=== PATIENT | female | born 1985 | race Caucasian/White ===

== ENCOUNTER 2022-05-04 12:25 | Emergency (ER) | payer OTHER ==
--- NOTE | 2022-05-04 13:01 | ERPHSYRPT ---
- History of Present Illness Time Seen by Provider: 05/04/22 13:01 Source: patient Exam Limitations: no limitations Physician History: This is a 36-year-old white female patient who has had an intermittent dry cough, shortness of breath and chest pain for 2 to 3 days. Patient was seen at [facility] and placed on steroids and diagnosed with pleurisy. The chest pain is intermittent and its central and to the right side. Symptoms are not any better. She has no abdominal pain. She has no fever. She has no nausea vomiting or diarrhea symptoms. Timing/Duration: day(s) Cough Quality/Degree: mild, dry cough Possible Cause: no prior episodes Modifying Factors: Improves With: coughing Associated Symptoms: chest pain/soreness, cough, shortness of breath Travel Risk - International Travel Have you traveled outside of the country in past 3 weeks: No - Coronavirus Screening Are you exhibiting any of the following symptoms?: Yes Symptoms: Cough: New Onset, Shortness of Breath Close contact with a COVID-19 positive Pt in past 14-21 Days: No - Review of Systems Constitutional: No Symptoms Eyes: No Symptoms, Foreign Body Sensation Respiratory: Cough, Dyspnea Cardiac: Chest Pain (With cough) Abdominal/Gastrointestinal: No Symptoms Genitourinary Symptoms: No Symptoms Musculoskeletal: No Symptoms Skin: No Symptoms Neurological: No Symptoms Psychological: No Symptoms Endocrine: No Symptoms Hematologic/Lymphatic: No Symptoms Immunological/Allergic: No Symptoms All Other Systems: Reviewed and Negative - Past Medical History Pertinent Past Medical History: Yes - Past Surgical History Past Surgical History: Yes - Nursing Vital Signs Nursing Vital Signs: Initial Vital Signs Temperature 96.2 F 05/04/22 13:12 Pulse Rate 79 05/04/22 13:12 Respiratory Rate 18 05/04/22 13:12 Blood Pressure 128/76 05/04/22 13:12 O2 Sat by Pulse Oximetry 99 05/04/22 13:12 Pain Scale Pain Intensity 5 - Physical Exam General Appearance: no apparent distress, alert, anxiety Eye Exam: PERRL/EOMI, eyes nml inspection Ears, Nose, Throat Exam: normal ENT inspection, moist mucous membranes Neck Exam: normal inspection, non-tender, supple, full range of motion Respiratory Exam: normal breath sounds, chest tenderness (With coughing), lungs clear, airway intact, No respiratory distress Cardiovascular Exam: regular rate/rhythm, normal heart sounds, normal peripheral pulses Gastrointestinal/Abdomen Exam: soft, normal bowel sounds, No tenderness Pelvic Exam: not done Rectal Exam: not done Back Exam: normal inspection, normal range of motion, No CVA tenderness, No vertebral tenderness Extremity Exam: normal inspection, normal range of motion, pelvis stable Neurologic Exam: alert, oriented x 3, cooperative, pearl peller II-XII nml as tested, normal mood/affect, nml cerebellar function, nml station & gait, sensation nml Skin Exam: normal color, warm, dry Lymphatic Exam: No adenopathy SpO2 Interpretation: normal O2 Delivery: Room Air - Course Nursing assessment & vital signs reviewed: Yes EKG Interpreted by Me: RATE (68), Sinus Rhythm, NORMAL AXIS, NORMAL INTERVALS, NORMAL QRS, NORMAL ST-T, Other Ordered Tests: Active Orders 24 hr Category Date Time Status EKG-ER Only STAT Care 05/04/22 13:40 Active Pulse Oximetry (ED) STAT Care 05/04/22 13:40 Active CHEST 1 VIEW (PORTABLE) Stat Exams 05/04/22 13:40 Completed CBC W DIFF Stat Lab 05/04/22 13:57 Completed CMP Stat Lab 05/04/22 13:57 Completed D-DIMER QUANTITATIVE Stat Lab 05/04/22 13:57 Completed TROPONIN Q4H Lab 05/04/22 13:57 Completed TROPONIN Q4H Lab 05/04/22 17:45 Ordered TROPONIN Q4H Lab 05/04/22 21:45 Ordered Medication Summary Discontinued Medications Generic Name Dose Route Start Last Admin Trade Name Freq PRN Reason Stop Dose Admin Aspirin 324 mg 05/04/22 13:40 05/04/22 14:29 Aspirin 81 Mg Tab.Chew PO 05/04/22 13:41 324 mg STAT ONE Administration Lab/Rad Data: Laboratory Result Diagrams 05/04/22 13:57 05/04/22 13:57 Laboratory Results 05/04/22 05/04/22 05/04/22 Range/Units 13:57 13:57 13:57 WBC (4.0-10.5) x10^3/uL RBC (4.1-5.4) x10^6/uL Hgb (12.0-16.0) g/dL Hct (35-47) % MCV (78-100) fL MCH (26-32) pg MCHC (32-36) g/dL RDW (11.5-14.0) % Plt Count (150-450) x10^3/uL MPV (7.5-11.0) fL Gran % (36.0-66.0) % Immature Gran % (Auto) (0.00-0.4) % Nucleat RBC Rel Count (0.00-0.1) % Eos # (Auto) (0-0.5) x10^3/uL Immature Gran # (Auto) (0.00-0.03) x10^3u/L Absolute Lymphs (auto) (1.0-4.6) x10^3/uL Absolute Monos (auto) (0.0-1.3) x10^3/uL Absolute Nucleated RBC (0.00-0.01) x10^3u/L Lymphocytes % (24.0-44.0) % Monocytes % (0.0-12.0) % Eosinophils % (0.00-5.0) % Basophils % (0.0-0.4) % Absolute Granulocytes (1.4-6.9) x10^3/uL Basophils # (0-0.4) x10^3/uL D-Dimer 0.34 (0.0-0.50) mg/L Sodium (137-145) mmol/L Potassium (3.5-5.1) mmol/L Chloride (98-107) mmol/L Carbon Dioxide (22-30) mmol/L Anion Gap (5-15) MEQ/L BUN (7-17) mg/dL Creatinine (0.52-1.04) mg/dL Estimated GFR ML/MIN Glucose (74-106) mg/dL Calcium (8.4-10.2) mg/dL Total Bilirubin (0.2-1.3) mg/dL AST (14-36) U/L ALT (0-35) U/L Alkaline Phosphatase (38-126) U/L Troponin I < 0.012 (0.000-0.034) ng/mL Serum Total Protein (6.3-8.2) g/dL Albumin (3.5-5.0) g/dL Influenza Type A Ag NEGATIVE (NEGATIVE) Influenza Type B Ag NEGATIVE (NEGATIVE) RSV (PCR) NEGATIVE (Negative) SARS-CoV-2 (PCR) NEGATIVE (NEGATIVE) 05/04/22 05/04/22 Range/Units 13:57 13:57 WBC 11.5 H (4.0-10.5) x10^3/uL RBC 4.44 (4.1-5.4) x10^6/uL Hgb 12.9 (12.0-16.0) g/dL Hct 40.5 (35-47) % MCV 91.2 (78-100) fL MCH 29.1 (26-32) pg MCHC 31.9 L (32-36) g/dL RDW 14.0 (11.5-14.0) % Plt Count 241 (150-450) x10^3/uL MPV 11.6 H (7.5-11.0) fL Gran % 84.2 H (36.0-66.0) % Immature Gran % (Auto) 0.4 (0.00-0.4) % Nucleat RBC Rel Count 0.0 (0.00-0.1) % Eos # (Auto) 0.01 (0-0.5) x10^3/uL Immature Gran # (Auto) 0.05 H (0.00-0.03) x10^3u/L Absolute Lymphs (auto) 1.20 (1.0-4.6) x10^3/uL Absolute Monos (auto) 0.54 (0.0-1.3) x10^3/uL Absolute Nucleated RBC 0.00 (0.00-0.01) x10^3u/L Lymphocytes % 10.4 L (24.0-44.0) % Monocytes % 4.7 (0.0-12.0) % Eosinophils % 0.1 (0.00-5.0) % Basophils % 0.2 (0.0-0.4) % Absolute Granulocytes 9.67 H (1.4-6.9) x10^3/uL Basophils # 0.02 (0-0.4) x10^3/uL D-Dimer (0.0-0.50) mg/L Sodium 142 (137-145) mmol/L Potassium 4.0 (3.5-5.1) mmol/L Chloride 105 (98-107) mmol/L Carbon Dioxide 29 (22-30) mmol/L Anion Gap 12.1 (5-15) MEQ/L BUN 11 (7-17) mg/dL Creatinine 0.59 (0.52-1.04) mg/dL Estimated GFR > 60.0 ML/MIN Glucose 101 (74-106) mg/dL Calcium 9.6 (8.4-10.2) mg/dL Total Bilirubin 0.40 (0.2-1.3) mg/dL AST 27 (14-36) U/L ALT 23 (0-35) U/L Alkaline Phosphatase 53 (38-126) U/L Troponin I (0.000-0.034) ng/mL Serum Total Protein 8.4 H (6.3-8.2) g/dL Albumin 4.9 (3.5-5.0) g/dL Influenza Type A Ag (NEGATIVE) Influenza Type B Ag (NEGATIVE) RSV (PCR) (Negative) SARS-CoV-2 (PCR) (NEGATIVE) - Progress Progress: re-examined Air Movement: good Progress Note: 05/04/22 17:18 Chest x-ray was read by the radiologist and the impression was reviewed by me. There is no acute cardiopulmonary process. This patient's medical issue is of moderate complexity. The past medical history was reviewed as was the report from the [facility] visit recently. Patient was diagnosed with pleurisy and given a prescription for steroids. However, her symptoms are not improved. The work-up was performed based on the patient's past medical history, history of present illness and findings on physical examination. The work-up include placement of IV, chest x- ray, twelve-lead EKG, troponin, D-dimer, CBC and CMP. The results were reviewed by me. They were discussed with the patient. Discharge plan is to have the patient receive cefdinir oral antibiotics, continuation of her outpatient steroi ds, and I will add hydrocodone elixir for cough. She is to follow-up with her primary care provider for further evaluation management. Blood Culture(s) Obtained: No Antibiotics given: No Counseled pt/family regarding: lab results, diagnosis, need for follow-up, rad results Medical Desision Making - Discussion of managment Reviewed:: Test results Agreed on:: Treatment plan, need for follow-up - Diagnostic Testing Diagnostic test were ordered, analyzed, and reviewed by me: Yes Radiological Interpretation: Interpreted by me, Teleradiologist Report - Risk of complications The pt has a mod risk of morbidity or mortality based on: Need for prescription drug management - Departure Departure Disposition: Home Clinical Impression: Upper respiratory infection, Leukocytosis Condition: Stable Critical Care Time: No Referrals: MAURICE BAEZ [employer] [Primary Care Provider] - Follow up/PCP as directed Additional Instructions: Avoid exposure to any type of smoke. Continue your steroids as prescribed. Take your cough medicine and antibiotics as prescribed. Follow-up with your primary care provider for further evaluation management. Prescriptions: Hydrocodone/Acetaminophen [Hydrocodone-Acetamn 7.5-325/15] 10 ml PO Q8H PRN PRN #120 ml MDD 30 ml PRN Reason: Cough Cefdinir 300 mg PO BID #14 cap
[2022-05-04] MEDS ORDERED: BABY ASPIRIN 81 MG CHEW PO ONE (13:40)
--- NOTE | 2022-05-04 13:58 | XRAY ---
Indication: Cough and chest pain. Comparison: None Portable chest demonstrates minimal left base subsegmental atelectasis/scarring and a few incidental tiny calcified granuloma. Remaining heart and lungs normal. Bony thorax intact.
[2022-05-04 14:01] LABS: Absolute Neutrophil Ct (ANC) 9.67 x10^3/uL (1.4-6.9); BASOPHIL % 0.2 % (0.0-0.4); Basophil (Absolute #) 0.02 x10^3/uL (0-0.4); Eosinophil % 0.1 % (0.00-5.0); Eosinophil (Absolute #) 0.01 x10^3/uL (0-0.5); Hematocrit 40.5 % (35-47); Hemoglobin 12.9 g/dL (12.0-16.0); IMMATURE GRAN # 0.05 x10^3u/L (0.00-0.03); IMMATURE GRAN % 0.4 % (0.00-0.4); Lymphocytes % 10.4 % (24.0-44.0); Mean Cell Volume 91.2 fL (78-100); Mean Corpuscular Hemoglobin 29.1 pg (26-32); Mean Corpuscular Hgb Concent. 31.9 g/dL (32-36); Mean Platelet Volume 11.6 fL (7.5-11.0); Monocyte (Absolute #) 0.54 x10^3/uL (0.0-1.3); Monocytes % 4.7 % (0.0-12.0); Neutrophil % 84.2 % (36.0-66.0); Platelet Count 241 x10^3/uL (150-450); Red Blood Count 4.44 x10^6/uL (4.1-5.4); White Blood Count 11.5 x10^3/uL (4.0-10.5)
[2022-05-04 14:18] LABS: ALBUMIN 4.9 g/dL (3.5-5.0); ALKALINE PHOSPHATASE 53 U/L (38-126); ANION GAP 12.1 MEQ/L (5-15); BLOOD UREA NITROGEN 11 mg/dL (7-17); CHLORIDE 105 mmol/L (98-107); Calcium 9.6 mg/dL (8.4-10.2); Carbon Dioxide 29 mmol/L (22-30); Creatinine 1 0.59 mg/dL (0.52-1.04); EST GLOMERULAR FILTRATION RATE > 60.0 ML/MIN; Glucose 101 mg/dL (74-106); SGOT/AST 27 U/L (14-36); SGPT/ALT 23 U/L (0-35); SODIUM 142 mmol/L (137-145); Total Protein 8.4 g/dL (6.3-8.2)
[2022-05-04 14:47] LABS: INFLUENZA A NEGATIVE (NEGATIVE); INFLUENZA B NEGATIVE (NEGATIVE); RESPIRATORY SYNCTIAL VIRUS NEGATIVE (Negative); SARS-CoV-2 Xpert Express NEGATIVE (NEGATIVE)
[2022-05-04 16:02] VITALS: O2SAT 100
[2022-05-04 18:06] VITALS: BP 129/77; PULSE 64
== END 2022-05-04 18:05 | disposition home or self-care (01) ==
LOC: ED 12:25
DX: J06.9 Acute upper respiratory infection, unspecified (principal); D72.829 Elevated white blood cell count, unspecified; R07.9 Chest pain, unspecified; R05.1 Acute cough; R06.02 Shortness of breath; Z79.891 Long term (current) use of opiate analgesic
CPT/HCPCS: 0241U; 36415; 71045; 80053; 84484; 85025; 85379; 93005; 94760; 99283; A9270-GY

== ENCOUNTER 2024-07-04 11:02 | Observation (INO) | payer MEDICAID, OTHER ==
[2024-07-04] MEDS ORDERED: Zofran 4 MG/2 ML VIAL ONE (11:57)
[2024-07-04] MEDS ORDERED: Sodium Chloride 0.9% 1000 ML 1,000 ML ONE (11:57)
[2024-07-04] MEDS ORDERED: MORPHINE SULFATE 2 MG INJ ONE (11:57)
--- NOTE | 2024-07-04 11:57 | ERPHSYRPT ---
- History of Present Illness Time Seen by Provider: 07/04/24 11:52 Source: patient Exam Limitations: no limitations Patient Subjective Stated Complaint: pt states that she was at [facility] on wednesday and was diagnosed with gastritis. pt states that she has not been able to eat or drink since Triage Nursing Assessment: pt ambulated into the er; pt is axo x4; c/o nausea; pt denies vomiting due to past surgery that she is not able to vomit; pt states 7/10 pain to abd; abd is soft, round, non tender with palpitation; active bowel sounds in all quads; pt denies diarrhea; pt states last bm was 06/29/24; mucus membranes are pink and moist; skin PDW; no respiratory distress present; vitals wnl Physician History: 39-year-old history of Herman fundoplication 2 years ago presents to our ED for evaluation of nausea and abdominal discomfort. Patient reports that she was at [facility] 4 days ago for the same. Patient had a complete workup including CT abdomen pelvis with contrast. Patient was diagnosed with gastritis. Patient was sent home with nausea medication. Patient states and spite of taking the medication as prescribed she has not been able to tolerate oral intake. Patient unable to eat or drink. Patient states she is unable to vomit secondary to the fundoplication. Patient rates her pain 7 out of 10. No trauma no fever no rash. No chest pain or shortness of breath. No diaphoresis. Symptoms are moderate in intensity. No specific worsening or improving factors. Patient voices no other complaints or concerns at this time. Portions of this note were created with voice recognition technology. There may be grammatical, spelling, punctuation or sound alike errors Timing/Duration: day(s) (4 days) Severity: moderate Modifying Factors: Improves With: nothing Associated Symptoms: denies symptoms Allergies/Adverse Reactions: No Known Drug Allergies Allergy (Unverified 07/04/24 11:08) Home Medications: Buspirone HCl 5 mg [Buspar 5 mg] 5 mg PO BID 07/04/24 [History] Buspirone HCl 5 mg [Buspar 5 mg] 10 mg PO TID 07/04/24 [History] Celecoxib 100 mg [celeBREX 100 MG] 100 mg PO BID 07/04/24 [History] Gabapentin 800 mg PO TID PRN 07/04/24 [History] Mirtazapine 30 mg [Remeron 30 mg] 30 mg PO HS 07/04/24 [History] Naltrexone HCl 50 mg PO DAILY 07/04/24 [History] Promethazine HCl 25 mg [Phenergan 25 mg] 25 mg PO QIDPRN PRN 07/04/24 [History] Sertraline HCl 100 mg PO DAILY 07/04/24 [History] risperiDONE [Risperdal] 2 mg PO BID 07/04/24 [History] risperiDONE [Risperidone] 1 mg PO HS 07/04/24 [History] risperiDONE [Risperidone] 2 mg PO DAILY 07/04/24 [History] Hx Tetanus, Diphtheria Vaccination/Date Given: No Hx Influenza Vaccination/Date Given: No Hx Pneumococcal Vaccination/Date Given: No Travel Risk - International Travel Have you traveled outside of the country in past 3 weeks: No - Emerging Infectious Disease Are you exhibiting symptoms associated with any current EIDs: Yes Symptoms: Abdominal Pain, Vomitting - Review of Systems Constitutional: No Symptoms, No Fever, No Chills Eyes: No Symptoms Ears, Nose, & Throat: No Symptoms Respiratory: No Symptoms, No Cough, No Dyspnea Cardiac: No Symptoms, No Chest Pain, No Edema, No Syncope Abdominal/Gastrointestinal: No Symptoms, No Abdominal Pain, No Nausea, No Vomiting, No Diarrhea Genitourinary Symptoms: No Symptoms, No Dysuria Musculoskeletal: No Symptoms, No Back Pain, No Neck Pain Skin: No Symptoms, No Rash Neurological: No Symptoms, No Dizziness, No Focal Weakness, No Sensory Changes Psychological: No Symptoms Endocrine: No Symptoms Hematologic/Lymphatic: No Symptoms Immunological/Allergic: No Symptoms All Other Systems: Reviewed and Negative - Past Medical History Pertinent Past Medical History: Yes Psycho-Social History: Bipolar, Depression - Past Surgical History Past Surgical History: Yes Musculoskeletal: Orthopedic Surgery Female Surgical History: Tubal Ligation Other Surgical History: right femur, esophageal surgery - Female History Hx Now: No - Social History Smoking Status: Current every day smoker Exposure to second hand smoke: Yes Drug Use: none - Social Determinants of Health Will the patient participate in the screening: Yes Do you worry about a steady place to live?: No Do you have any problems with any of the following?: No known problems In the past 12 months,have you had to go without utilities?: No Transportation Issues: No Has anyone in your support network made you feel unsafe?: No Have you or anyone in your house had to go w/o enough food: No - Nursing Vital Signs Nursing Vital Signs: Initial Vital Signs Pulse Rate 65 07/04/24 11:09 Blood Pressure 118/75 07/04/24 11:09 O2 Sat by Pulse Oximetry 98 07/04/24 11:09 Pain Scale Pain Intensity 5 - Physical Exam General Appearance: no apparent distress, alert Eye Exam: PERRL/EOMI, eyes nml inspection Ears, Nose, Throat Exam: normal ENT inspection, pharynx normal, moist mucous membranes Neck Exam: normal inspection, full range of motion Respiratory Exam: normal breath sounds, lungs clear, No respiratory distress Cardiovascular Exam: regular rate/rhythm, normal heart sounds, normal peripheral pulses Gastrointestinal/Abdomen Exam: soft, normal bowel sounds, No tenderness, No mass Back Exam: normal inspection, normal range of motion, No CVA tenderness, No vertebral tenderness Extremity Exam: normal inspection, normal range of motion, pelvis stable Neurologic Exam: alert, oriented x 3, cooperative, normal mood/affect, sensation nml, No motor deficits Skin Exam: normal color, warm, dry, No rash Lymphatic Exam: No adenopathy SpO2 Interpretation: normal SpO2: 99 O2 Delivery: Room Air - Course Nursing assessment & vital signs reviewed: Yes Ordered Tests: Active Orders 24 hr Category Date Time Status IV Insertion STAT Care 07/04/24 11:52 Active CBC W DIFF Stat Lab 07/04/24 11:59 Completed CMP Stat Lab 07/04/24 11:59 Completed CULTURE,URINE Stat Lab 07/04/24 11:52 Received LIPASE Stat Lab 07/04/24 11:59 Completed Lactic Acid Stat Lab 07/04/24 11:52 Completed TROPONIN Q4H Lab 07/04/24 11:59 Completed TROPONIN Q4H Lab 07/04/24 16:00 Ordered TROPONIN Q4H Lab 07/04/24 20:00 Ordered UA W/RFX UR CULTURE Stat Lab 07/04/24 11:52 Completed Transfer Order Routine Transfer 07/04/24 Ordered Medication Summary Discontinued Medications Generic Name Dose Route Start Last Admin Trade Name Freq PRN Reason Stop Dose Admin Sodium Chloride 1,000 mls @ 999 mls/hr 07/04/24 11:52 07/04/24 13:01 Sodium Chloride 0.9% 1000 Ml IV 07/04/24 12:52 Infused .Q1H1M STA Infusion Sodium Chloride Confirm 07/04/24 11:57 Sodium Chloride 0.9% 1000 Ml Administered 07/04/24 11:58 Dose 1,000 mls @ ud .ROUTE .STK-MED ONE Ceftriaxone Sodium 1 gm in 100 mls @ 200 mls/hr 07/04/24 12:31 07/04/24 12:49 Rocephin 1 Gm / 100 Ml Nacl IV 07/04/24 13:00 200 mls/hr STAT ONE 200 mls/hr Administration Ceftriaxone Sodium Confirm 07/04/24 12:48 Rocephin 1 Gm / 100 Ml Nacl Administered 07/04/24 12:49 Dose 1 gm in 100 mls @ ud IV .STK-MED ONE Morphine Sulfate 2 mg 07/04/24 11:52 07/04/24 11:59 Morphine Sulfate 2 Mg/Ml Inj IV 07/04/24 11:53 2 mg STAT ONE Administration Morphine Sulfate Confirm 07/04/24 11:57 Morphine Sulfate 2 Mg/Ml Inj Administered 07/04/24 11:58 Dose 2 mg .ROUTE .STK-MED ONE Morphine Sulfate 4 mg 07/04/24 12:30 07/04/24 12:49 Morphine Sulfate 4 Mg/Ml Injection IV 07/04/24 12:31 4 mg STAT ONE Administration Morphine Sulfate Confirm 07/04/24 12:48 Morphine Sulfate 4 Mg/Ml Injection Administered 07/04/24 12:49 Dose 4 mg .ROUTE .STK-MED ONE Ondansetron HCl 4 mg 07/04/24 11:52 07/04/24 11:59 Ondansetron Hcl 4 Mg/2 Ml Vial IV 07/04/24 11:53 4 mg STAT ONE Administration Ondansetron HCl Confirm 07/04/24 11:57 Ondansetron Hcl 4 Mg/2 Ml Vial Administered 07/04/24 11:58 Dose 4 mg .ROUTE .STK-MED ONE Pantoprazole Sodium 40 mg 07/04/24 12:19 07/04/24 12:25 Pantoprazole 40 Mg Vial IV 07/04/24 12:20 40 mg STAT ONE Administration Pantoprazole Sodium Confirm 07/04/24 12:24 Pantoprazole 40 Mg Vial Administered 07/04/24 12:25 Dose 40 mg IV .K-MED ONE Lab/Rad Data: Laboratory Result Diagrams 07/04/24 11:59 07/04/24 11:59 Laboratory Results 07/04/24 07/04/24 07/04/24 Range/Units 11:59 11:59 11:59 WBC 9.7 (3.98-10.04) x10^3/uL RBC 4.87 (3.93-5.22) x10^6/uL Hgb 15.2 (11.2-15.7) g/dL Hct 43.7 (34.1-44.9) % MCV 89.7 (79.4-94.8) fL MCH 31.2 (25.6-32.2) pg MCHC 34.8 (32.2-35.5) g/dL RDW 13.9 (11.7-14.4) % Plt Count 224 (182-369) x10^3/uL MPV 13.0 H (9.4-12.3) fL Gran % 68.4 (34.0-71.1) % Immature Gran % (Auto) 0.3 (0.001-0.429) % Nucleat RBC Rel Count 0.0 (0.00-0.2) % Eos # (Auto) 0.07 (0.04-0.36) x10^3/uL Immature Gran # (Auto) 0.03 (0.001-0.031) x10^3u/L Absolute Lymphs (auto) 2.35 (1.18-3.74) x10^3/uL Absolute Monos (auto) 0.58 (0.24-0.86) x10^3/uL Absolute Nucleated RBC 0.00 (0.00-0.012) x10^3u/L Lymphocytes % 24.2 (19.3-51.7) % Monocytes % 6.0 (4.7-12.5) % Eosinophils % 0.7 (0.7-5.8) % Basophils % 0.4 (0.1-1.2) % Absolute Granulocytes 6.64 H (1.56-6.13) x10^3/uL Basophils # 0.04 (0.01-0.08) x10^3/uL Sodium 136 (135-145) mmol/L Potassium 3.6 (3.5-5.1) mmol/L Chloride 97 L (98-107) mmol/L Carbon Dioxide 22 (22-30) mmol/L Anion Gap 21.1 H (5-15) MEQ/L BUN 8 (7-17) mg/dL Creatinine 0.62 (0.52-1.04) mg/dL Estimated GFR 116.8 ML/MIN Glucose 86 (74-106) mg/dL Lactic Acid (0.4-2.0) Calcium 9.5 (8.4-10.2) mg/dL Total Bilirubin 0.70 (0.2-1.3) mg/dL AST 37 H (14-36) U/L ALT 21 (0-35) U/L Alkaline Phosphatase 63 (38-126) U/L Troponin I < 0.012 (0.000-0.033) ng/mL Serum Total Protein 7.5 (6.3-8.2) g/dL Albumin 4.7 (3.5-5.0) g/dL Lipase 111 (23-300) U/L Urine Color (Yellow) Urine Appearance (Clear) Urine pH (4.6-8.0) Ur Specific [place] (1.005-1.030) Urine Protein (Negative) Urine Glucose (UA) (Negative) mg/dL Urine Ketones (Negative) Urine Blood (Negative) Urine Nitrite (Negative) Urine Bilirubin (Negative) Urine Urobilinogen (0.2) mg/dL Ur Leukocyte Esterase (Negative) U Hyaline Cast (Auto) (0-2) /LPF Urine Microscopic RBC (0-5) /HPF Urine Microscopic WBC (0-5) /HPF Ur Epithelial Cells (None Seen) /HPF Urine Bacteria (None Seen) /HPF Urine Culture Reflexed (NO) 07/04/24 07/04/24 Range/Units 11:52 11:52 WBC (3.98-10.04) x10^3/uL RBC (3.93-5.22) x10^6/uL Hgb (11.2-15.7) g/dL Hct (34.1-44.9) % MCV (79.4-94.8) fL MCH (25.6-32.2) pg MCHC (32.2-35.5) g/dL RDW (11.7-14.4) % Plt Count (182-369) x10^3/uL MPV (9.4-12.3) fL Gran % (34.0-71.1) % Immature Gran % (Auto) (0.001-0.429) % Nucleat RBC Rel Count (0.00-0.2) % Eos # (Auto) (0.04-0.36) x10^3/uL Immature Gran # (Auto) (0.001-0.031) x10^3u/L Absolute Lymphs (auto) (1.18-3.74) x10^3/uL Absolute Monos (auto) (0.24-0.86) x10^3/uL Absolute Nucleated RBC (0.00-0.012) x10^3u/L Lymphocytes % (19.3-51.7) % Monocytes % (4.7-12.5) % Eosinophils % (0.7-5.8) % Basophils % (0.1-1.2) % Absolute Granulocytes (1.56-6.13) x10^3/uL Basophils # (0.01-0.08) x10^3/uL Sodium (135-145) mmol/L Potassium (3.5-5.1) mmol/L Chloride (98-107) mmol/L Carbon Dioxide (22-30) mmol/L Anion Gap (5-15) MEQ/L BUN (7-17) mg/dL Creatinine (0.52-1.04) mg/dL Estimated GFR ML/MIN Glucose (74-106) mg/dL Lactic Acid 1.7 (0.4-2.0) Calcium (8.4-10.2) mg/dL Total Bilirubin (0.2-1.3) mg/dL AST (14-36) U/L ALT (0-35) U/L Alkaline Phosphatase (38-126) U/L Troponin I (0.000-0.033) ng/mL Serum Total Protein (6.3-8.2) g/dL Albumin (3.5-5.0) g/dL Lipase (23-300) U/L Urine Color Yellow (Yellow) Urine Appearance Cloudy A (Clear) Urine pH 6.5 (4.6-8.0) Ur Specific [place] 1.025 (1.005-1.030) Urine Protein Trace A (Negative) Urine Glucose (UA) Negative (Negative) mg/dL Urine Ketones >=160 A (Negative) Urine Blood Negative (Negative) Urine Nitrite Negative (Negative) Urine Bilirubin Negative (Negative) Urine Urobilinogen 1.0 A (0.2) mg/dL Ur Leukocyte Esterase Small A (Negative) U Hyaline Cast (Auto) None Seen (0-2) /LPF Urine Microscopic RBC NONE SEEN (0-5) /HPF Urine Microscopic WBC 6-10 A (0-5) /HPF Ur Epithelial Cells Moderate A (None Seen) /HPF Urine Bacteria Moderate A (None Seen) /HPF Urine Culture Reflexed YES (NO) - Progress Progress: improved Progress Note: Patient accepted for admission by Dr. Renee at 1:36 PM 07/04/24 13:36 39-year-old female presents to emergency department for evaluation of nausea. Symptoms have been ongoing. Patient was at a local hospital for the same. We reviewed the documentation from [facility]. CT scan with contrast was negative for acute intra-abdominal pathology. Patient discharge diagnosis with gastritis. Patient states that she has not been able to tolerate p.o. since then. Patient has been very nauseous. Patient reports she is unable to vomit secondary to her fundoplication surgery 2 years ago. Laboratory workup essentially nonremarkable. Patient failed p.o. challenge. In light of patient's ongoing symptomology and dehydration patient will be admitted for further evaluation and treatment. Plan of care discussed with patient. She agrees to admission at [facility] for further evaluation and treatment. Portions of this note were created with voice recognition technology. There may be grammatical, spelling, punctuation or sound alike errors Complexity of problem addressed is moderate acute complicated. No critical care time. Complexity of data reviewed and analyzed is extensive. Test ordered chest reviewed results analyzed and correlated clinically with history and physical exam. Risk of complication and or risk of morbidity/mortality of patient management is high. Patient requires hospitalization for further evaluation and treatment. Vital stable. Time spent admit patient is approximately 15 minutes. Plan of care established via shared decision making. No social determinants of health present to impede follow-up. Portions of this note were created with voice recognition technology. There may be grammatical, spelling, punctuation or sound alike errors 07/04/24 13:40 Counseled pt/family regarding: lab results, diagnosis, need for follow-up - Departure Departure Disposition: Observation Clinical Impression: Intractable nausea, Anorexia Condition: Stable Critical Care Time: No Referrals: MAURICE BAEZ [employer] [facility] [Primary Care Provider, UNKNOWN] - Follow up/PCP as directed
[2024-07-04 11:59] LABS: Absolute Neutrophil Ct (ANC) 6.64 x10^3/uL (1.56-6.13); BASOPHIL % 0.4 % (0.1-1.2); Basophil (Absolute #) 0.04 x10^3/uL (0.01-0.08); Eosinophil % 0.7 % (0.7-5.8); Eosinophil (Absolute #) 0.07 x10^3/uL (0.04-0.36); Hematocrit 43.7 % (34.1-44.9); Hemoglobin 15.2 g/dL (11.2-15.7); IMMATURE GRAN # 0.03 x10^3u/L (0.001-0.031); IMMATURE GRAN % 0.3 % (0.001-0.429); Lymphocyte (Absolute #) 2.35 x10^3/uL (1.18-3.74); Lymphocytes % 24.2 % (19.3-51.7); Mean Cell Volume 89.7 fL (79.4-94.8); Mean Corpuscular Hemoglobin 31.2 pg (25.6-32.2); Mean Corpuscular Hgb Concent. 34.8 g/dL (32.2-35.5); Monocyte (Absolute #) 0.58 x10^3/uL (0.24-0.86); Neutrophil % 68.4 % (34.0-71.1); Platelet Count 224 x10^3/uL (182-369); Red Blood Count 4.87 x10^6/uL (3.93-5.22); Red Cell Distribution Width 13.9 % (11.7-14.4); White Blood Count 9.7 x10^3/uL (3.98-10.04)
[2024-07-04] MEDS: Zofran 4 MG/2 ML VIAL IV ONE (11:59)
[2024-07-04] MEDS: MORPHINE SULFATE 2 MG INJ IV ONE (11:59)
[2024-07-04] MEDS: Sodium Chloride 0.9% 1000 ML 1,000 ML IV STA (11:59)
[2024-07-04 12:05] LABS: ALBUMIN 4.7 g/dL (3.5-5.0); ANION GAP 21.1 MEQ/L (5-15); BILIRUBIN,TOTAL 0.7 mg/dL (0.2-1.3); Calcium 9.5 mg/dL (8.4-10.2); Creatinine 1 0.62 mg/dL (0.52-1.04); EST GLOMERULAR FILTRATION RATE 116.8 ML/MIN; Potassium 3.6 mmol/L (3.5-5.1); Total Protein 7.5 g/dL (6.3-8.2)
[2024-07-04 12:24] LABS: Appearance Cloudy (Clear); Bacteria Moderate /HPF (None Seen); Bilirubin Negative (Negative); Blood Negative (Negative); Epithelial Cells Moderate /HPF (None Seen); Glucose, Urine Negative (Negative); Hyaline Casts None Seen /LPF (0-2); Ketones >=160 (Negative); Leukocyte Esterase Small (Negative); Nitrite Negative (Negative); Ph 6.5 (4.6-8.0); Protein,Urine Dip Trace (Negative); RBC NONE SEEN /HPF (0-5); Specific Gravity 1.025 (1.005-1.030)
[2024-07-04] MEDS ORDERED: PROTONIX 40 MG IV IV ONE (12:24)
[2024-07-04] MEDS: PROTONIX 40 MG IV IV ONE (12:25)
[2024-07-04] MEDS ORDERED: MORPHINE SULFATE 4 MG INJ ONE (12:48)
[2024-07-04] MEDS ORDERED: ROCEPHIN 1 GM / 100 ML NaCl 1 GM/100 ML IVPB IV ONE (12:48)
[2024-07-04] MEDS: ROCEPHIN 1 GM / 100 ML NaCl 1 GM/100 ML IVPB IV ONE (12:49)
[2024-07-04] MEDS: MORPHINE SULFATE 4 MG INJ IV ONE (12:49)
--- NOTE | 2024-07-04 14:39 | PCM.HP ---
History of Present Illness - Chief Complaint Chief Complaint: Intractable nausea, UTI Date: 07/04/24 History of Present Illness: is a 39-year-old female with a history of bipolar, depression, peripheral neuropathy, and Herman fundoplication two years ago presents to the emergency department with complaints of nausea and abdominal discomfort. She reports being evaluated at [facility] four days ago for similar symptoms, where she underwent a full workup including a CT scan of the abdomen and pelvis with contrast. At that time, she was diagnosed with gastritis and discharged home with anti-nausea medication. Despite taking the medication as prescribed, she states she has been unable to tolerate any oral intake and has not been able to eat or drink. She also reports being unable to vomit due to the prior fundoplication. She currently rates her abdominal pain as 7 out of 10. She denies any trauma, fever, rash, chest pain, shortness of breath, or diaphoresis. Her symptoms are moderate in intensity with no clear aggravating or relieving factors. At this time, the patient voices no additional complaints or concerns. General surgery consulted for possible EGD for further evaluation. - Review of Systems Constitutional: No Fever, No Chills Eyes: No Symptoms Ears, Nose, & Throat: No Symptoms Respiratory: No Cough, No Short Of Breath Cardiac: No Chest Pain, No Edema, No Syncope Abdominal/Gastrointestinal: Abdominal Pain (epigastric), Nausea, No Vomiting, No Diarrhea Genitourinary Symptoms: No Dysuria Musculoskeletal: No Back Pain, No Neck Pain Skin: No Rash Neurological: No Dizziness, No Focal Weakness, No Sensory Changes Psychological: No Symptoms Endocrine: No Symptoms Hematologic/Lymphatic: No Symptoms Immunological/Allergic: No Symptoms Medications & Allergies Home Medications: Home Medication List Buspirone HCl 5 mg [Buspar 5 mg] 5 mg PO BID 07/04/24 [History Confirmed 07/04/24] Buspirone HCl 5 mg [Buspar 5 mg] 10 mg PO TID 07/04/24 [History Confirmed 07/04/24] Celecoxib 100 mg [celeBREX 100 MG] 100 mg PO BID 07/04/24 [History Confirmed 07/04/24] Gabapentin 800 mg PO TID PRN 07/04/24 [History Confirmed 07/04/24] Mirtazapine 30 mg [Remeron 30 mg] 30 mg PO HS 07/04/24 [History Confirmed 07/04/24] Naltrexone HCl 50 mg PO DAILY 07/04/24 [History Confirmed 07/04/24] Promethazine HCl 25 mg [Phenergan 25 mg] 25 mg PO QIDPRN PRN 07/04/24 [History Confirmed 07/04/24] Sertraline HCl 100 mg PO DAILY 07/04/24 [History Confirmed 07/04/24] risperiDONE [Risperdal] 2 mg PO BID 07/04/24 [History Confirmed 07/04/24] risperiDONE [Risperidone] 1 mg PO HS 07/04/24 [History Confirmed 07/04/24] risperiDONE [Risperidone] 2 mg PO DAILY 07/04/24 [History Confirmed 07/04/24] Allergies/Adverse Reactions: Allergies Allergy/AdvReac Type Severity Reaction Status Date / Time No Known Drug Allergies Allergy Unverified 07/04/24 11:08 - Past Medical History Past Medical History: Yes Neurological History: Peripheral Neuropathy Pyscho-Social History: Bipolar, Depression - Female History Are you now?: No - Past Surgical History Past Surgical History: Yes Musculskeletal Surgical Hx: Orthopedic Surgery Female Surgical History: Tubal Ligation Other Surgical History: right femur, esophageal surgery Significant Family History: no pertinent family hx - Social History Smoking Status: Current every day smoker Exposure to second hand smoke: Yes Alcohol: Occasionally Drug Use: none - Social Determinants of Health Will the patient participate in the screening: Yes Do you worry about a steady place to live?: No Do you have any problems with any of the following?: No known problems In the past 12 months,have you had to go without utilities?: No Have you or anyone in your house had to go without enough: No Transportation Issues: No Has anyone in your support network made you feel unsafe?: No - Physical Exam Vital Signs: Vital Signs - 24 hr Temp Pulse Resp BP BP Pulse Ox 07/04/24 14:00 70 111/71 98 07/04/24 13:43 99 07/04/24 13:31 62 114/90 100 07/04/24 13:00 55 L 131/65 100 07/04/24 12:30 59 L 126/77 100 07/04/24 12:09 61 122/71 100 07/04/24 12:06 61 18 122/71 99 07/04/24 11:30 64 106/67 100 07/04/24 11:28 97.6 F 70 18 118/75 99 07/04/24 11:09 65 118/75 98 General Appearance: no apparent distress, alert Neurologic Exam: alert, oriented x 3, cooperative, normal mood/affect, nml cerebellar function, nml station & gait, sensation nml, No motor deficits Eye Exam: PERRL/EOMI, eyes nml inspection Ears, Nose, Throat Exam: normal ENT inspection, TMs normal, pharynx normal, moist mucous membranes Neck Exam: normal inspection, non-tender, supple, full range of motion Respiratory Exam: normal breath sounds, lungs clear, No respiratory distress Cardiovascular Exam: regular rate/rhythm, normal heart sounds, normal peripheral pulses Gastrointestinal/Abdomen Exam: soft, normal bowel sounds, tenderness (epigastric region), No mass Back Exam: normal inspection, normal range of motion, No CVA tenderness, No vertebral tenderness Extremity Exam: normal inspection, normal range of motion, pelvis stable Skin Exam: normal color, warm, dry, No rash Lymphatic Exam: No adenopathy Results - Labs Lab/Micro Results: Lab Results-Last 24 Hours 07/04/24 07/04/24 07/04/24 Range/Units 11:52 11:52 11:59 WBC 9.7 (3.98-10.04) x10^3/uL RBC 4.87 (3.93-5.22) x10^6/uL Hgb 15.2 (11.2-15.7) g/dL Hct 43.7 (34.1-44.9) % MCV 89.7 (79.4-94.8) fL MCH 31.2 (25.6-32.2) pg MCHC 34.8 (32.2-35.5) g/dL RDW 13.9 (11.7-14.4) % Plt Count 224 (182-369) x10^3/uL MPV 13.0 H (9.4-12.3) fL Gran % 68.4 (34.0-71.1) % Immature Gran % (Auto) 0.3 (0.001-0.429) % Nucleat RBC Rel Count 0.0 (0.00-0.2) % Eos # (Auto) 0.07 (0.04-0.36) x10^3/uL Immature Gran # (Auto) 0.03 (0.001-0.031) x10^3u/L Absolute Lymphs (auto) 2.35 (1.18-3.74) x10^3/uL Absolute Monos (auto) 0.58 (0.24-0.86) x10^3/uL Absolute Nucleated RBC 0.00 (0.00-0.012) x10^3u/L Lymphocytes % 24.2 (19.3-51.7) % Monocytes % 6.0 (4.7-12.5) % Eosinophils % 0.7 (0.7-5.8) % Basophils % 0.4 (0.1-1.2) % Absolute Granulocytes 6.64 H (1.56-6.13) x10^3/uL Basophils # 0.04 (0.01-0.08) x10^3/uL Sodium (135-145) mmol/L Potassium (3.5-5.1) mmol/L Chloride (98-107) mmol/L Carbon Dioxide (22-30) mmol/L Anion Gap (5-15) MEQ/L BUN (7-17) mg/dL Creatinine (0.52-1.04) mg/dL Estimated GFR ML/MIN Glucose (74-106) mg/dL Lactic Acid 1.7 (0.4-2.0) Calcium (8.4-10.2) mg/dL Total Bilirubin (0.2-1.3) mg/dL AST (14-36) U/L ALT (0-35) U/L Alkaline Phosphatase (38-126) U/L Troponin I (0.000-0.033) ng/mL Serum Total Protein (6.3-8.2) g/dL Albumin (3.5-5.0) g/dL Lipase (23-300) U/L Urine Color Yellow (Yellow) Urine Appearance Cloudy A (Clear) Urine pH 6.5 (4.6-8.0) Ur Specific [place] 1.025 (1.005-1.030) Urine Protein Trace A (Negative) Urine Glucose (UA) Negative (Negative) mg/dL Urine Ketones >=160 A (Negative) Urine Blood Negative (Negative) Urine Nitrite Negative (Negative) Urine Bilirubin Negative (Negative) Urine Urobilinogen 1.0 A (0.2) mg/dL Ur Leukocyte Esterase Small A (Negative) U Hyaline Cast (Auto) None Seen (0-2) /LPF Urine Microscopic RBC NONE SEEN (0-5) /HPF Urine Microscopic WBC 6-10 A (0-5) /HPF Ur Epithelial Cells Moderate A (None Seen) /HPF Urine Bacteria Moderate A (None Seen) /HPF Urine Culture Reflexed YES (NO) 07/04/24 07/04/24 Range/Units 11:59 11:59 WBC (3.98-10.04) x10^3/uL RBC (3.93-5.22) x10^6/uL Hgb (11.2-15.7) g/dL Hct (34.1-44.9) % MCV (79.4-94.8) fL MCH (25.6-32.2) pg MCHC (32.2-35.5) g/dL RDW (11.7-14.4) % Plt Count (182-369) x10^3/uL MPV (9.4-12.3) fL Gran % (34.0-71.1) % Immature Gran % (Auto) (0.001-0.429) % Nucleat RBC Rel Count (0.00-0.2) % Eos # (Auto) (0.04-0.36) x10^3/uL Immature Gran # (Auto) (0.001-0.031) x10^3u/L Absolute Lymphs (auto) (1.18-3.74) x10^3/uL Absolute Monos (auto) (0.24-0.86) x10^3/uL Absolute Nucleated RBC (0.00-0.012) x10^3u/L Lymphocytes % (19.3-51.7) % Monocytes % (4.7-12.5) % Eosinophils % (0.7-5.8) % Basophils % (0.1-1.2) % Absolute Granulocytes (1.56-6.13) x10^3/uL Basophils # (0.01-0.08) x10^3/uL Sodium 136 (135-145) mmol/L Potassium 3.6 (3.5-5.1) mmol/L Chloride 97 L (98-107) mmol/L Carbon Dioxide 22 (22-30) mmol/L Anion Gap 21.1 H (5-15) MEQ/L BUN 8 (7-17) mg/dL Creatinine 0.62 (0.52-1.04) mg/dL Estimated GFR 116.8 ML/MIN Glucose 86 (74-106) mg/dL Lactic Acid (0.4-2.0) Calcium 9.5 (8.4-10.2) mg/dL Total Bilirubin 0.70 (0.2-1.3) mg/dL AST 37 H (14-36) U/L ALT 21 (0-35) U/L Alkaline Phosphatase 63 (38-126) U/L Troponin I < 0.012 (0.000-0.033) ng/mL Serum Total Protein 7.5 (6.3-8.2) g/dL Albumin 4.7 (3.5-5.0) g/dL Lipase 111 (23-300) U/L Urine Color (Yellow) Urine Appearance (Clear) Urine pH (4.6-8.0) Ur Specific [place] (1.005-1.030) Urine Protein (Negative) Urine Glucose (UA) (Negative) mg/dL Urine Ketones (Negative) Urine Blood (Negative) Urine Nitrite (Negative) Urine Bilirubin (Negative) Urine Urobilinogen (0.2) mg/dL Ur Leukocyte Esterase (Negative) U Hyaline Cast (Auto) (0-2) /LPF Urine Microscopic RBC (0-5) /HPF Urine Microscopic WBC (0-5) /HPF Ur Epithelial Cells (None Seen) /HPF Urine Bacteria (None Seen) /HPF Urine Culture Reflexed (NO) Assessment/Plan (1) UTI (urinary tract infection) Current Visit: Yes Status: Acute Assessment & Plan: - UA, CBC, CMP reviewed - Ceftriaxone IV - UC pending Code(s): N39.0 - URINARY TRACT INFECTION, SITE NOT SPECIFIED (2) Gastritis Current Visit: Yes Status: Acute Assessment & Plan: - Recent dx at [facility] - consult for EGD - Protonix 40 IV Q12 Code(s): K29.70 - GASTRITIS, UNSPECIFIED, WITHOUT BLEEDING (3) Intractable nausea Current Visit: Yes Status: Acute Assessment & Plan: - Zofran IV PRN Code(s): R11.0 - NAUSEA (4) Obesity (BMI 30.0-34.9) Current Visit: Yes Status: Chronic Assessment & Plan: - Advised diet and exercise control Code(s): E66.811 - OBESITY, CLASS 1 (5) Smoker Current Visit: Yes Status: Chronic Assessment & Plan: - Advised smoking cessation - Nicotine patch VTE: SCD's PPI: Protonix Next of KIN: Irina Olman- Child D/C plan: 1-2 days Code status: Full Code(s): F17.200 - NICOTINE DEPENDENCE, UNSPECIFIED, UNCOMPLICATED Telemedicine Encounter - Telemedicine Encounter Telemedicine Encounter: "The entirety of this encounter was performed via Telemedicine" This visit was performed using real-time audio and video connection between my location and thepatients locationwith the assistance of a surrogateat the patients location. Written or verbal consent was obtained from the patient/guardian to perform this visit us[facility] technology. Any patient questions regarding the telemedicine interaction were answered.
[2024-07-04] MEDS: Sodium Chloride 0.9% 1000 ML 1,000 ML IV SCH (15:01)
[2024-07-04] MEDS: Nicoderm CQ 21 MG TOP SCH (15:13)
[2024-07-04] MEDS: Zofran 4 MG/2 ML VIAL IV PRN (18:36)
[2024-07-04] MEDS: MORPHINE SULFATE 2 MG INJ IV PRN (20:37)
[2024-07-04] MEDS: PROTONIX 40 MG IV IV SCH (21:48)
[2024-07-05 03:47] VITALS: RESP 16
[2024-07-05 09:21] LABS: Hemoglobin 14.8 g/dL (11.2-15.7); Mean Cell Volume 93.9 fL (79.4-94.8); Mean Corpuscular Hemoglobin 30.9 pg (25.6-32.2); Mean Corpuscular Hgb Concent. 32.9 g/dL (32.2-35.5); Platelet Count 178 x10^3/uL (182-369); Red Blood Count 4.79 x10^6/uL (3.93-5.22); Red Cell Distribution Width 14.2 % (11.7-14.4); White Blood Count 7.3 x10^3/uL (3.98-10.04)
[2024-07-05] MEDS: ROCEPHIN 1 GM / 100 ML NaCl 1 GM/100 ML IVPB IV SCH (09:25)
[2024-07-05 09:35] LABS: ALBUMIN 4.3 g/dL (3.5-5.0); ANION GAP 20.2 MEQ/L (5-15); BILIRUBIN,TOTAL 0.6 mg/dL (0.2-1.3); Calcium 9.3 mg/dL (8.4-10.2); Creatinine 1 0.52 mg/dL (0.52-1.04); EST GLOMERULAR FILTRATION RATE 121.9 ML/MIN; Potassium 4.3 mmol/L (3.5-5.1); Total Protein 6.6 g/dL (6.3-8.2)
[2024-07-05 09:44] LABS: Slide Review YES
[2024-07-05] MEDS ORDERED: PROTONIX 40 MG IV IV SCH (10:00)
[2024-07-05] MEDS ORDERED: Lactated Ringers 1,000 ML IV ONE (11:37)
[2024-07-05] MEDS ORDERED: Versed 2 MG/2 ML Injection ONE (11:37)
[2024-07-05] MEDS ORDERED: propofoL IV ONE ×2 (11:37→11:47)
--- NOTE | 2024-07-05 12:32 | PCM.NOTE ---
Date and Time: 07/05/24 1228 Subjective Assessment: 07/04/24 is a 39-year-old female with a history of bipolar, depression, peripheral neuropathy, and Herman fundoplication two years ago presents to the emergency department with complaints of nausea and abdominal discomfort. She reports being evaluated at [facility] four days ago for similar symptoms, where she underwent a full workup including a CT scan of the abdomen and pelvis with contrast. At that time, she was diagnosed with gastritis and discharged home with anti-nausea medication. Despite taking the medication as prescribed, she states she has been unable to tolerate any oral intake and has not been able to eat or drink. She also reports being unable to vomit due to the prior fundoplication. She currently rates her abdominal pain as 7 out of 10. She denies any trauma, fever, rash, chest pain, shortness of breath, or diaphoresis. Her symptoms are moderate in intensity with no clear aggravating or relieving factors. At this time, the patient voices no additional complaints or concerns. General surgery consulted for possible EGD for further evaluation. 07/05/24 Pt resting in bed. She continues to c/o intermittent abd. pain in the epigastric region. Pt made NPO as per nursing note pt may have EGD today. Records on the chart from [facility] on Herman fundoplication. Pt denies any further concerns at this time. Explained if EGD not done today we could change diet and then make NPO after midnight. - Review of Systems Constitutional: No Fever, No Chills Eyes: No Symptoms Ears, Nose, & Throat: No Symptoms Respiratory: No Cough, No Short Of Breath Cardiac: No Chest Pain, No Edema, No Syncope Abdominal/Gastrointestinal: Nausea, No Vomiting, No Diarrhea Genitourinary Symptoms: No Dysuria Musculoskeletal: No Back Pain, No Neck Pain Skin: No Rash Neurological: No Dizziness, No Focal Weakness, No Sensory Changes Psychological: No Symptoms Endocrine: No Symptoms Hematologic/Lymphatic: No Symptoms Immunological/Allergic: No Symptoms Objective Exam General Appearance: no apparent distress, alert, obese Neurologic Exam: alert, oriented x 3, cooperative, normal mood/affect, nml cerebellar function, sensation nml, No motor deficits Skin Exam: normal color, warm, dry Eye Exam: PERRL, EOMI, eyes nml inspection Ears, Nose, Throat Exam: normal ENT inspection, pharynx normal, moist mucous membranes Neck Exam: normal inspection, non-tender, supple, full range of motion Respiratory Exam: normal breath sounds, lungs clear, No respiratory distress Cardiovascular Exam: regular rate/rhythm, normal heart sounds Gastrointestinal/Abdomen Exam: soft, tenderness (epigastric), No mass Extremity Exam: normal inspection, normal range of motion Back Exam: normal inspection, normal range of motion, No CVA tenderness, No vertebral tenderness Pelvic Exam: deferred Rectal Exam: deferred Objective Data Vital Signs: Vital Signs - 24 hr Temp Pulse Resp BP BP Pulse Ox 07/05/24 11:32 98.0 F 57 L 16 107/54 95 07/05/24 11:05 97.8 F 54 L 16 123/73 94 L 07/05/24 07:15 97.8 F 54 L 16 123/73 94 L 07/05/24 03:46 98.1 F 56 L 16 113/56 96 07/04/24 23:27 97.1 F 56 L 18 124/69 98 07/04/24 20:00 97.3 F 57 L 18 128/58 95 07/04/24 14:27 97.6 F 70 118/75 98 07/04/24 14:00 70 111/71 98 07/04/24 13:43 99 07/04/24 13:31 62 114/90 100 07/04/24 13:00 55 L 131/65 100 07/04/24 12:30 59 L 126/77 100 Pain Assessment - Last Documented Pain Intensity 7 Pain Scale Used 0-10 Pain Scale Intake and Output: Intake & Output 07/03/24 07/04/24 07/05/24 07/06/24 11:59 11:59 11:59 11:59 Intake Total 2201 Balance 2201 Weight 90 kg 90 kg Lab Results: Lab Results-Last 24 Hours 07/04/24 07/04/24 07/05/24 Range/Units 16:18 20:01 09:04 WBC 7.3 (3.98-10.04) x10^3/uL RBC 4.79 (3.93-5.22) x10^6/uL Hgb 14.8 (11.2-15.7) g/dL Hct 45.0 H (34.1-44.9) % MCV 93.9 (79.4-94.8) fL MCH 30.9 (25.6-32.2) pg MCHC 32.9 (32.2-35.5) g/dL RDW 14.2 (11.7-14.4) % Plt Count 178 L (182-369) x10^3/uL MPV 13.0 H (9.4-12.3) fL Sodium (135-145) mmol/L Potassium (3.5-5.1) mmol/L Chloride (98-107) mmol/L Carbon Dioxide (22-30) mmol/L Anion Gap (5-15) MEQ/L BUN (7-17) mg/dL Creatinine (0.52-1.04) mg/dL Estimated GFR ML/MIN Glucose (74-106) mg/dL Calcium (8.4-10.2) mg/dL Total Bilirubin (0.2-1.3) mg/dL AST (14-36) U/L ALT (0-35) U/L Alkaline Phosphatase (38-126) U/L Troponin I < 0.012 < 0.012 (0.000-0.033) ng/mL Serum Total Protein (6.3-8.2) g/dL Albumin (3.5-5.0) g/dL Slides for Path Review YES 07/05/24 Range/Units 09:04 WBC (3.98-10.04) x10^3/uL RBC (3.93-5.22) x10^6/uL Hgb (11.2-15.7) g/dL Hct (34.1-44.9) % MCV (79.4-94.8) fL MCH (25.6-32.2) pg MCHC (32.2-35.5) g/dL RDW (11.7-14.4) % Plt Count (182-369) x10^3/uL MPV (9.4-12.3) fL Sodium 141 (135-145) mmol/L Potassium 4.3 (3.5-5.1) mmol/L Chloride 104 (98-107) mmol/L Carbon Dioxide 21 L (22-30) mmol/L Anion Gap 20.2 H (5-15) MEQ/L BUN 5 L (7-17) mg/dL Creatinine 0.52 (0.52-1.04) mg/dL Estimated GFR 121.9 ML/MIN Glucose 86 (74-106) mg/dL Calcium 9.3 (8.4-10.2) mg/dL Total Bilirubin 0.60 (0.2-1.3) mg/dL AST 23 (14-36) U/L ALT 17 (0-35) U/L Alkaline Phosphatase 52 (38-126) U/L Troponin I (0.000-0.033) ng/mL Serum Total Protein 6.6 (6.3-8.2) g/dL Albumin 4.3 (3.5-5.0) g/dL Slides for Path Review Medications: Medications Generic Name Dose Route Start Last Admin Trade Name Freq PRN Reason Stop Dose Admin Sodium Chloride 1,000 mls @ 100 mls/hr 07/04/24 14:45 07/05/24 01:00 Sodium Chloride 0.9% 1000 Ml IV 08/03/24 14:44 100 mls/hr .Q10H NICOLLE Administration Morphine Sulfate 2 mg 07/04/24 20:05 07/05/24 08:05 Morphine Sulfate 2 Mg/Ml Inj IV 07/09/24 20:04 2 mg Q4H PRN PRN Administration SEVERE PAIN Nicotine 21 mg 07/04/24 15:15 07/04/24 15:13 Nicotine 21 Mg/Patch Patch TOP 08/03/24 15:14 21 mg Q24H NICOLLE Administration Ondansetron HCl 4 mg 07/04/24 14:36 07/05/24 08:06 Ondansetron Hcl 4 Mg/2 Ml Vial IV 08/03/24 14:35 4 mg Q6H PRN PRN Administration NAUSEA/VOMITING Pantoprazole Sodium 40 mg 07/04/24 22:00 07/05/24 09:22 Pantoprazole 40 Mg Vial IV 08/03/24 21:59 40 mg BID NICOLLE Administration Discontinued Medications Generic Name Dose Route Start Last Admin Trade Name Freq PRN Reason Stop Dose Admin Sodium Chloride 1,000 mls @ 999 mls/hr 07/04/24 11:52 07/04/24 13:01 Sodium Chloride 0.9% 1000 Ml IV 07/04/24 12:52 Infused .Q1H1M STA Infusion Sodium Chloride Confirm 07/04/24 11:57 Sodium Chloride 0.9% 1000 Ml Administered 07/04/24 11:58 Dose 1,000 mls @ ud .ROUTE .STK-MED ONE Ceftriaxone Sodium 1 gm in 100 mls @ 200 mls/hr 07/04/24 12:31 07/04/24 13:40 Rocephin 1 Gm / 100 Ml Nacl IV 07/04/24 13:00 Infused STAT ONE Infusion Ceftriaxone Sodium Confirm 07/04/24 12:48 Rocephin 1 Gm / 100 Ml Nacl Administered 07/04/24 12:49 Dose 1 gm in 100 mls @ ud IV .STK-MED ONE Ceftriaxone Sodium 1 gm in 100 mls @ 200 mls/hr 07/05/24 10:00 07/05/24 09:25 Rocephin 1 Gm / 100 Ml Nacl IV 08/04/24 09:59 200 mls/hr Q24H10 NICOLLE Administration Lactated Ringer's Confirm 07/05/24 11:37 Lactated Ringers Administered 07/05/24 11:38 Dose 1,000 mls @ ud IV .STK-MED ONE Midazolam HCl Confirm 07/05/24 11:37 Midazolam Hcl 2 Mg/2 Ml Vial Administered 07/05/24 11:38 Dose 2 mg .ROUTE .STK-MED ONE Morphine Sulfate 2 mg 07/04/24 11:52 07/04/24 11:59 Morphine Sulfate 2 Mg/Ml Inj IV 07/04/24 11:53 2 mg STAT ONE Administration Morphine Sulfate Confirm 07/04/24 11:57 Morphine Sulfate 2 Mg/Ml Inj Administered 07/04/24 11:58 Dose 2 mg .ROUTE .STK-MED ONE Morphine Sulfate 4 mg 07/04/24 12:30 07/04/24 12:49 Morphine Sulfate 4 Mg/Ml Injection IV 07/04/24 12:31 4 mg STAT ONE Administration Morphine Sulfate Confirm 07/04/24 12:48 Morphine Sulfate 4 Mg/Ml Injection Administered 07/04/24 12:49 Dose 4 mg .ROUTE .STK-MED ONE Ondansetron HCl 4 mg 07/04/24 11:52 07/04/24 11:59 Ondansetron Hcl 4 Mg/2 Ml Vial IV 07/04/24 11:53 4 mg STAT ONE Administration Ondansetron HCl Confirm 07/04/24 11:57 Ondansetron Hcl 4 Mg/2 Ml Vial Administered 07/04/24 11:58 Dose 4 mg .ROUTE .STK-MED ONE Pantoprazole Sodium 40 mg 07/04/24 12:19 07/04/24 12:25 Pantoprazole 40 Mg Vial IV 07/04/24 12:20 40 mg STAT ONE Administration Pantoprazole Sodium Confirm 07/04/24 12:24 Pantoprazole 40 Mg Vial Administered 07/04/24 12:25 Dose 40 mg IV .STK-MED ONE Pantoprazole Sodium 40 mg 07/05/24 10:00 Pantoprazole 40 Mg Vial IV 08/04/24 09:59 DAILY NIOCLLE Propofol Confirm 07/05/24 11:37 Propofol 200 Mg/20 Ml Vial Administered 07/05/24 11:38 Dose 200 mg IV .STK-MED ONE Propofol Confirm 07/05/24 11:47 Propofol 200 Mg/20 Ml Vial Administered 07/05/24 11:48 Dose 200 mg IV .STK-MED ONE Assessment/Plan (1) UTI (urinary tract infection) Current Visit: Yes Status: Acute Code(s): N39.0 - URINARY TRACT INFECTION, SITE NOT SPECIFIED (2) Gastritis Current Visit: Yes Status: Acute Code(s): K29.70 - GASTRITIS, UNSPECIFIED, WITHOUT BLEEDING (3) Intractable nausea Current Visit: Yes Status: Acute Code(s): R11.0 - NAUSEA (4) Obesity (BMI 30.0-34.9) Current Visit: Yes Status: Chronic Code(s): E66.811 - OBESITY, CLASS 1 (5) Smoker Current Visit: Yes Status: Chronic Assessment & Plan: (1) UTI (urinary tract infection) Current Visit: Yes Status: Acute Assessment & Plan: - UA, CBC, CMP reviewed - Ceftriaxone IV - UC pending 07/05 - UC negative - Antibiotic stopped Code(s): N39.0 - URINARY TRACT INFECTION, SITE NOT SPECIFIED (2) Gastritis Current Visit: Yes Status: Acute Assessment & Plan: - Recent dx at [facility] - GS consult for EGD - Protonix 40 IV Q12 07/05 - Made NPO for possible EGD today Code(s): K29.70 - GASTRITIS, UNSPECIFIED, WITHOUT BLEEDING (3) Intractable nausea Current Visit: Yes Status: Acute Assessment & Plan: - Zofran IV PRN Code(s): R11.0 - NAUSEA (4) Obesity (BMI 30.0-34.9) Current Visit: Yes Status: Chronic Assessment & Plan: - Advised diet and exercise control Code(s): E66.811 - OBESITY, CLASS 1 (5) Smoker Current Visit: Yes Status: Chronic Assessment & Plan: - Advised smoking cessation - Nicotine patch VTE: SCD's PPI: Protonix Next of KIN: Irina Thurman- Child D/C plan: 1-2 days Code status: Full Code(s): F17.200 - NICOTINE DEPENDENCE, UNSPECIFIED, UNCOMPLICATED
[2024-07-05] MEDS ORDERED: PHENERGAN 25 MG PO PRN (14:39)
[2024-07-05] MEDS ORDERED: NON-FORMULARY ITEM (Gabapentin [Gabapentin] 800 MG Tablet) PO PRN (14:39)
[2024-07-05] MEDS ORDERED: Neurontin PO PRN (14:45)
[2024-07-05] MEDS ORDERED: MEDICATION INTERVENTION MC SCH (15:00)
[2024-07-05 15:48] VITALS: BP 124/60; PULSE 54; TEMP 98.5; O2SAT 96
--- NOTE | 2024-07-05 15:59 | PCM.DS ---
Discharge Summary Date of Admission: 07/04/24 14:20 Date of Discharge: 07/05/24 Admitting Physician: BARB MORAN MD Consults: Consults on Case 07/04/24 15:00 Consult Surgery ROUTINE Primary Care Provider: MAURICE BAEZ NP Allergies Allergies No Known Drug Allergies Allergy (Unverified 07/04/24 11:08) Hospital Summary - Hospital Course Hospital Course: 07/04/24 is a 39-year-old female with a history of bipolar, depression, peripheral neuropathy, and Herman fundoplication two years ago presents to the emergency department with complaints of nausea and abdominal discomfort. She reports being evaluated at [facility] four days ago for similar symptoms, where she underwent a full workup including a CT scan of the abdomen and pelvis with contrast. At that time, she was diagnosed with gastritis and discharged home with anti-nausea medication. Despite taking the medication as prescribed, she states she has been unable to tolerate any oral intake and has not been able to eat or drink. She also reports being unable to vomit due to the prior fundoplication. She currently rates her abdominal pain as 7 out of 10. She denies any trauma, fever, rash, chest pain, shortness of breath, or diaphoresis. Her symptoms are moderate in intensity with no clear aggravating or relieving factors. At this time, the patient voices no additional complaints or concerns. General surgery consulted for possible EGD for further evaluation. 07/05/24 Pt resting in bed. She continues to c/o intermittent abd. pain in the epigastric region. Pt made NPO as per nursing note pt may have EGD today. Records on the chart from [facility] on Herman fundoplication. Pt denies any further concerns at this time. Explained if EGD not done today we could change diet and then make NPO after midnight. EGD completed and nothing concerning seen per GS. Will have pt eat and if able to keep down can d/c today. Will d/c with protonix BID. Advised pt to stop smoking as this can contribute. Will make appointment with GI is she does nota have a GI provider. - Vitals & Intake/Output Vital Signs: Vital Signs Temperature 98.5 F 07/05/24 15:47 Pulse Rate 54 L 07/05/24 15:47 Respiratory Rate 16 07/05/24 15:47 Blood Pressure 124/60 07/05/24 15:47 O2 Sat by Pulse Oximetry 96 07/05/24 15:47 Intake & Output: Intake & Output 07/03/24 07/04/24 07/05/24 07/06/24 11:59 11:59 11:59 11:59 Intake Total 2201 280 Balance 2201 280 Weight 90 kg 90 kg - Lab Result Diagrams: 07/05/24 09:04 07/05/24 09:04 Lab Results-Last 24 Hrs: Lab Results-Last 24 Hours 07/04/24 07/04/24 07/05/24 Range/Units 16:18 20:01 09:04 WBC 7.3 (3.98-10.04) x10^3/uL RBC 4.79 (3.93-5.22) x10^6/uL Hgb 14.8 (11.2-15.7) g/dL Hct 45.0 H (34.1-44.9) % MCV 93.9 (79.4-94.8) fL MCH 30.9 (25.6-32.2) pg MCHC 32.9 (32.2-35.5) g/dL RDW 14.2 (11.7-14.4) % Plt Count 178 L (182-369) x10^3/uL MPV 13.0 H (9.4-12.3) fL Sodium (135-145) mmol/L Potassium (3.5-5.1) mmol/L Chloride (98-107) mmol/L Carbon Dioxide (22-30) mmol/L Anion Gap (5-15) MEQ/L BUN (7-17) mg/dL Creatinine (0.52-1.04) mg/dL Estimated GFR ML/MIN Glucose (74-106) mg/dL Calcium (8.4-10.2) mg/dL Total Bilirubin (0.2-1.3) mg/dL AST (14-36) U/L ALT (0-35) U/L Alkaline Phosphatase (38-126) U/L Troponin I < 0.012 < 0.012 (0.000-0.033) ng/mL Serum Total Protein (6.3-8.2) g/dL Albumin (3.5-5.0) g/dL Slides for Path Review YES 07/05/24 Range/Units 09:04 WBC (3.98-10.04) x10^3/uL RBC (3.93-5.22) x10^6/uL Hgb (11.2-15.7) g/dL Hct (34.1-44.9) % MCV (79.4-94.8) fL MCH (25.6-32.2) pg MCHC (32.2-35.5) g/dL RDW (11.7-14.4) % Plt Count (182-369) x10^3/uL MPV (9.4-12.3) fL Sodium 141 (135-145) mmol/L Potassium 4.3 (3.5-5.1) mmol/L Chloride 104 (98-107) mmol/L Carbon Dioxide 21 L (22-30) mmol/L Anion Gap 20.2 H (5-15) MEQ/L BUN 5 L (7-17) mg/dL Creatinine 0.52 (0.52-1.04) mg/dL Estimated GFR 121.9 ML/MIN Glucose 86 (74-106) mg/dL Calcium 9.3 (8.4-10.2) mg/dL Total Bilirubin 0.60 (0.2-1.3) mg/dL AST 23 (14-36) U/L ALT 17 (0-35) U/L Alkaline Phosphatase 52 (38-126) U/L Troponin I (0.000-0.033) ng/mL Serum Total Protein 6.6 (6.3-8.2) g/dL Albumin 4.3 (3.5-5.0) g/dL Slides for Path Review Micro Results-Entire Visit: Microbiology 07/04/24 11:52 Urine Culture - Preliminary Clean Catch Midstream <10K NORMAL SKIN ELVIS PROBABLE SKIN CONTAMINANT Discharge Exam General Appearance: no apparent distress, alert Neurologic Exam: alert, oriented x 3, cooperative, normal mood/affect, nml cerebellar function, sensation nml, No motor deficits Eye Exam: PERRL, EOMI, eyes nml inspection Ears, Nose, Throat Exam: normal ENT inspection, pharynx normal, moist mucous membranes Neck Exam: normal inspection, non-tender, supple, full range of motion Respiratory Exam: normal breath sounds, lungs clear, No respiratory distress Cardiovascular Exam: regular rate/rhythm, normal heart sounds Gastrointestinal/Abdomen Exam: soft, No tenderness, No mass Pelvic Exam: deferred Rectal Exam: deferred Back Exam: normal inspection, normal range of motion, No CVA tenderness, No vertebral tenderness Extremity Exam: normal inspection, normal range of motion Skin Exam: normal color, warm, dry Final Diagnosis/Problem List - Final Discharge Diagnosis/Problem (1) UTI (urinary tract infection) Current Visit: Yes Status: Acute Code(s): N39.0 - URINARY TRACT INFECTION, SITE NOT SPECIFIED (2) Gastritis Current Visit: Yes Status: Acute Code(s): K29.70 - GASTRITIS, UNSPECIFIED, WITHOUT BLEEDING (3) Intractable nausea Current Visit: Yes Status: Acute Code(s): R11.0 - NAUSEA (4) Obesity (BMI 30.0-34.9) Current Visit: Yes Status: Chronic Code(s): E66.811 - OBESITY, CLASS 1 (5) Smoker Current Visit: Yes Status: Chronic Assessment & Plan: (1) UTI (urinary tract infection) Current Visit: Yes Status: Acute Assessment & Plan: - UA, CBC, CMP reviewed - Ceftriaxone IV - UC pending 07/05 - UC negative - Antibiotic stopped Code(s): N39.0 - URINARY TRACT INFECTION, SITE NOT SPECIFIED (2) Gastritis Current Visit: Yes Status: Acute Assessment & Plan: - Recent dx at [facility] - GS consult for EGD - Protonix 40 IV Q12 07/05 - Made NPO for possible EGD today - EGD completed and no concerning finding found - Will continue Protonix BID OP - Pt to f/u with GI OP - Will have pt eat prior to d/c. Code(s): K29.70 - GASTRITIS, UNSPECIFIED, WITHOUT BLEEDING (3) Intractable nausea Current Visit: Yes Status: Acute Assessment & Plan: - Zofran IV PRN Code(s): R11.0 - NAUSEA (4) Obesity (BMI 30.0-34.9) Current Visit: Yes Status: Chronic Assessment & Plan: - Advised diet and exercise control Code(s): E66.811 - OBESITY, CLASS 1 (5) Smoker Current Visit: Yes Status: Chronic Assessment & Plan: - Advised smoking cessation - Nicotine patch Code(s): F17.200 - NICOTINE DEPENDENCE, UNSPECIFIED, UNCOMPLICATED - Discharge Discharge Date: 07/05/24 Disposition: Home, Self-Care Condition: Stable Prescriptions: Continue Naltrexone HCl 50 mg PO DAILY risperiDONE [Risperidone] 2 mg PO BID Gabapentin 800 mg PO TID PRN PRN Reason: Pain Promethazine HCl 25 mg [Phenergan 25 mg] 25 mg PO QIDPRN PRN PRN Reason: Nausea Sertraline HCl 100 mg PO DAILY Follow up with: MAURICE BAEZ NP [Primary Care Provider, UNKNOWN]
--- NOTE | 2024-07-05 20:51 | CONS ---
HISTORY: The patient is a 39-year-old female who reports she had a major laparoscopic fundoplication she says by Dr. Gauthier done at [facility] in the past couple years. She apparently was a heavy alcohol drinker, drinking whiskey 3 or 4 times a week up until December then she cut down a little bit, but she did have a drink and had a flare-up where she had some pain and apparently went to the [facility] ER on Wednesday, told she had gastritis and sent home. She had nausea then. She apparently ended up in the ER here according to report. Our group was not called from the ER. This patient did have major surgery at other facility in the recent past. She had some persistent nausea, has a little bit of epigastric pain. She denies prior history of chronic pancreatitis that she know of. She has not been told she has cirrhosis. PAST MEDICAL HISTORY: She has had some anxiety, depression, PTSD in the past. She has had heavy alcohol use in the past. She apparently had some reflux in the past and had questionable Herman fundoplication she says by Dr. Gauthier. I am not sure if that is true or not. PAST SURGICAL HISTORY: She has had tonsillectomy and tubal in the past in addition to the major upper GI, esophageal, upper stomach fundoplication. She had some surgery in the past. HOME MEDICATIONS: She does take naltrexone for her alcohol abuse issues. She has been on sertraline, Risperdal, Tirzepatide for weight management. ALLERGIES: No known drug allergies. SOCIAL HISTORY: Half pack a day smoker. LAB DATA AND TESTS: Liver function tests unremarkable. Total bilirubin 0.7, AST 37, ALT 21, alkaline phosphatase 63. Lipase is in normal range at 111. White count 9.7, hemoglobin 15.2. PHYSICAL EXAMINATION: VITAL SIGNS: Afebrile, 97.6. Pulse 70. Blood pressure 111/71. Pulse ox 99% on room air. GENERAL: No acute distress. HEENT: Sclerae anicteric. NECK: No JVD. CHEST: Equal excursion. Nonlabored breathing. CARDIOVASCULAR: Regular pulse. ABDOMEN: Soft. No peritoneal signs. No rebound or guarding. EXTREMITIES: No cyanosis. NEUROLOGIC: Alert and oriented. Moving extremities symmetrically. PSYCHIATRIC: Appropriate mood and affect. IMPRESSION: A 39-year-old female. Apparently, no radiologic studies were done here. She came in with intractable nausea. She had heavy alcohol use in the past. She has had a major procedure she said was done at [facility] in the past [address] Gauthier, a Herman fundoplication-type procedure. She has not had upper endoscopy since then. She has had a tubal and tonsillectomy in the past. No other major abdominal surgery. She was seen in the ER, was admitted apparently by the hospitalist, and received the consult from the floor. We were not consulted per the emergency department. Whether she has some issues with her fundoplication, slipped wrap, or recurrent hiatal hernia or issues with her surgery that she had or whether she has alcoholic gastritis or peptic ulcer disease is unclear at this point. Will try to get her old records. She may need to be transferred back to [facility] where her surgeon did her procedure if this ends up being an issue with the wrap they did or possibly a tertiary system if that surgeon is no longer around. Otherwise, pending getting those films in the system so we can actually review the films and getting the old operative notes, may need to consider doing an upper GI test. Dr. Vázquez is business continuity global director down here tomorrow and will discuss with him. Again, no emergent surgical intervention necessary. She needs their operative notes from that hospital. She may need to transfer. She may need further evaluation with endoscopy at some time. We can leave her n.p.o. after midnight. Need to get these results. Will discuss with Dr. Vázquez who is business continuity global director here tomorrow. Otherwise, continue medical management of her anxiety, depression, history of alcohol use and nicotine dependence issues. No emergent surgical intervention necessary at this point. We were not called from the emergency department prior to this patient being admitted.
[2024-07-05] MEDS ORDERED: Risperdal 1 MG PO SCH (22:00)
[2024-07-05] MEDS ORDERED: RISPERIDONE 2 MG PO SCH (22:00)
[2024-07-06] MEDS ORDERED: NON-FORMULARY ITEM (Sertraline Hcl [Sertraline Hcl] 100 MG Tablet) PO SCH (10:00)
[2024-07-06] MEDS ORDERED: NON-FORMULARY ITEM (Naltrexone Hcl [Naltrexone Hcl] 50 MG Tablet) PO SCH (10:00)
[2024-07-06] MEDS ORDERED: ZOLOFT 50 MG TABLET PO SCH (10:00)
--- NOTE | 2024-07-06 10:36 | OP ---
SURGERY DATE/TIME: 07/05/2024 [id number] PREOPERATIVE DIAGNOSIS: Nausea and vomiting in the setting of a prior Herman fundoplication and hiatal hernia repair 1 year ago. POSTOPERATIVE DIAGNOSIS: Unremarkable esophagogastroduodenoscopy. PROCEDURE: Esophagogastroduodenoscopy. SURGEON: Sung Vázquez DO DESCRIPTION OF PROCEDURE AND FINDINGS: The patient was taken to endoscopy suite in stable condition, kept on a stretcher and turned to her on her left side. IV anesthesia was administered, and she was monitored for the duration of the procedure by the anesthesia department. Time-out was called. I passed a flexible endoscope down the oropharynx into the esophagus without issue, passed it down into the stomach through her prior hiatal hernia repair and Herman fundoplication. I passed it to the duodenum and retracted the scope. The duodenum was normal. Stomach was normal. Retroflexion view showed a omega sign with an intact fundoplication and what appeared the entire stomach was below the level of the diaphragm. I did not see recurrence of her hiatal hernia. The wrap was not too tight. The scope was pulled back into the esophagus which also appeared normal. No plaque, no ulcerations, and no esophagitis was noted. The scope was removed. The patient tolerated the procedure well and was taken to Recovery in stable condition. It does not appear that she has a complication from this hiatal hernia repair. She does have a history of marijuana use which could be causing her acute episode of emesis and nausea. If she does not improve, then my recommendation would be to check an upper GI after this to see if there is another cause, possibly even an gastric emptying study, but for now I would treat her supportively.
== END 2024-07-05 18:10 | disposition home or self-care (01) ==
LOC: ED 11:02 → MED SURG 14:20
PROVIDERS: ADMIT Internal Medicine; ATTEND Internal Medicine
DX: N39.0 Urinary tract infection, site not specified (principal); K29.70 Gastritis, unspecified, without bleeding; R11.0 Nausea; E66.811 Obesity, class 1; F17.200 Nicotine dependence, unspecified, uncomplicated; F32.A Depression, unspecified; Z79.899 Other long term (current) drug therapy; Z87.19 Personal history of other diseases of the digestive system
CPT/HCPCS: 36415; 43235; 80053; 81001; 83605; 83690; 84484; 85025; 85027; 87086; 96374; 99285; Q3014; 93268; J0696; J2250; J2270; J2405; J2704; A9270-GY; G0378